=== PATIENT | male | born 1980 | race Caucasian/White ===

== ENCOUNTER 2020-09-07 00:16 | Emergency (ER) | payer OTHER ==
[~2020-09-07] VITALS: Ht 180.3 cm; Wt 90.7 kg
[2020-09-07] MEDS ORDERED: XANAX2 MG PO (00:29)
[2020-09-07 00:42] LABS: MCHC 34.8 g/dL (28.0-37.0); NUCLEATED RBCS 0 /100WBC; RBC 4.61 mil/uL (4.50-6.00)
[2020-09-07 00:45] LABS: HEMATOCRIT 40.2 % (42.0-52.0); MCH 30.3 pg (26.0-34.0); MCV 87.2 fL (80.0-100.0); PLATELET COUNT* 204 thou/uL (150-400); RDW-CV 15.3 % (10.5-14.5); WBC 10.3 thou/uL (4.0-11.0)
[2020-09-07 00:48] LABS: CALCIUM 8.4 mg/dL (8.5-10.1); CREATININE 1.3 mg/dL (0.6-1.3); POTASSIUM 3.2 mmol/L (3.5-5.1)
[2020-09-07 01:19] LABS: ABSOLUTE EOSINOPHILS 0.1 thou/uL (0.0-0.7); ABSOLUTE MONOCYTES 0.7 thou/uL (0.0-1.2); ABSOLUTE NEUTROPHILS 2.5 thou/uL (1.6-8.1)
[2020-09-07 01:20] LABS: PLATELET ESTIMATE ADEQUATE
[2020-09-07 02:10] VITALS: BP 90/70
--- NOTE | 2020-09-08 13:31 | EKG ---
[place] [address] ELECTROCARDIOGRAM REPORT Name: MARK REILLY Room: [facility]#: [id number] Admission: 09/07/20 Attend Phys: Discharge: 09/07/20 Date of : 78 Date of Service: 09/07/20 0014 Report #: [id number] THIS REPORT FOR: //name// [facility] ED Test Date: 2020-09-07 Test Time: 00:14:50 Pat Name: MARK REILLY Department: Room: Gender: Cop: [place] : 1980 Requested By: Greer Cain Order Number: [id number] Reading MD: Jason Meyer Measurements Intervals [place] Rate: 115 P: 69 DE: 146 QRS: 23 QRSD: 91 T: 34 QT: 371 QTc: 513 Interpretive Statements Sinus tachycardia Minimal ST depression, anterolateral leads Prolonged QT interval Artifact in lead(s) I,aVR,aVL,aVF,V1,V4,V5,V6 No previous ECG available for comparison Electronically Signed On 09-08-2020 13:31:35 CDT by Jason Meyer [email or web address] <ELECTRONICALLY SIGNED> By: Jason Meyer MD, [facility] 09/08/20 1331 0014 0014 Jason Meyer MD, [facility] /EPI
== END 2020-09-07 02:12 | disposition home or self-care (01) ==
LOC: M.ERS 00:16
PROVIDERS: Emergency Medicine
DX: T50.7X1A Poisoning by analeptics and opioid receptor antagonists, accidental (unintentional), initial encounter (principal); Y92.89 Other specified places as the place of occurrence of the external cause